=== PATIENT | female | born 1990 | race Asian ===

== ENCOUNTER 2021-04-19 05:17 | Inpatient (IN) | payer BC ==
[2021-04-19] MEDS ORDERED: TERBUTALINE 1 MG/ML VIAL SQ PRN (06:10)
[2021-04-19] MEDS: LACTATED RINGERS 1,000 ML IV SCH ×4 (06:10→23:23)
[2021-04-19] MEDS ORDERED: METHYLERGONOVINE 0.2 MG/ML 1 ML AMP IM PRN (06:10)
[2021-04-19] MEDS ORDERED: LIDOCAINE 1% (PF) 10 MG/ML (30 ML SDV) SQ PRN (06:10)
[2021-04-19] MEDS ORDERED: CARBOPROST TROMETHAMINE 250 MCG/ML 1 ML AMP IM PRN (06:10)
[2021-04-19] MEDS ORDERED: OXYTOCIN 10 UNIT/ML 1 ML VIAL IM PRN (06:10)
[2021-04-19 06:23] LABS: Basophils % (A) 0 %; Eosinophils # (A) 0.1 k/uL (0-0.7); Eosinophils % (A) 1 %; HCT 37.6 % (34.0-46.0); HGB 12.5 gm/dL (11.4-16.0); Lymphocytes # (A) 1.9 k/uL (1.0-4.8); Lymphocytes % (A) 15 %; MCH 29.8 pg (25.0-35.0); MCHC 33.1 g/dL (31.0-37.0); Mean Platelet Volume 9.3; Monocytes # (A) 0.6 k/uL (0-1.0); Monocytes % (A) 5 %; Neutrophils # (A) 9.3 k/uL (1.3-7.7); Neutrophils % (A) 76 %; Platelet Count 220 k/uL (150-450); RBC 4.18 m/uL (3.80-5.40); RDW 14.5 % (11.5-15.5); WBC 12.2 k/uL (3.8-10.6)
[2021-04-19] MEDS ORDERED: OXYTOCIN 30 UNITS/500 ML NS 30 UNIT in SALINE 1 500ML.BAG IV SCH ×2 (06:45→17:00)
--- NOTE | 2021-04-19 14:06 | P.HPOB ---
History of Present Illness H&P Date: 04/19/21 Chief Complaint: 38-2/7 weeks, spontaneous rupture of membranes, early labor The patient is a 30-year-old 1 para 0 admitted at 38-2/7 weeks as established by last menstrual period and confirmed by second trimester ultrasound. She is admitted with documented spontaneous rupture of membranes in early labor with all signs reassuring, category 1 heart rate tracing. Her has been entirely uncomplicated and group B strep status is negative. Review of Systems Review of systems is confined to history of present illness. Past Medical History Past Medical History: No Reported History History of Any Multi-Drug Resistant Organisms: None Reported Past Surgical History: No Surgical Hx Reported Past Anesthesia/Blood Transfusion Reactions: No Reported Reaction Past Psychological History: No Psychological Hx Reported Smoking Status: Never smoker Past Alcohol Use History: None Reported Past Drug Use History: None Reported - Past Family History Mother Family Medical History: No Reported History Father Family Medical History: No Reported History Medications and Allergies Home Medications Medication Instructions Recorded Confirmed Type Cholecalciferol [Vitamin D3 (25 1 tab PO WEEKLY 04/19/21 04/19/21 History Mcg = 1000 Iu)] Pnv No.95/Ferrous Fum/Folic AC 1 tab PO DAILY 04/19/21 04/19/21 History [ Multivitamin Tablet] Allergies Allergy/AdvReac Type Severity Reaction Status Date / Time No Known Allergies Allergy Verified 04/19/21 05:20 Exam Vital Signs Temp Pulse Resp BP Pulse Ox 04/19/21 05:19 97.9 F 106 H 18 137/94 98 Intake and Output 04/18/21 04/19/21 04/19/21 22:59 06:59 14:59 Other: # Voids 1 Weight 72.121 kg In general, this is a well-developed, well-nourished woman in no acute distress. Her heart has a regular rhythm and rate without murmur. Her lungs clear to auscultation bilaterally in all collins. Her abdomen is gravid, nondistended, has normal active bowel sounds, is soft, nontender, and without any palpable masses aside from uterine fundus. Her extremities are without any cyanosis, clubbing, or edema and are nontender to palpation. On admission, her cervix was approximate 170 dilated, 50% effaced, the vertex in presentation at - 2 station. Spontaneous rupture of membranes was documented. Results Result Diagrams: 04/19/21 06:05 Abnormal Lab Results - Last 24 Hours (Table) 04/19/21 Range/Units 06:05 WBC 12.2 H (3.8-10.6) k/uL Neutrophils # 9.3 H (1.3-7.7) k/uL Assessment and Plan (1) Spontaneous rupture of amniotic membranes Current Visit: Yes Status: Acute Code(s): BYO1117 - SNOMED Code(s): 935661418 (2) Active labor at term Current Visit: Yes Status: Acute Code(s): ESW8176 - SNOMED Code(s): 34676868 Plan: The patient has been admitted for active management of labor. Pitocin augmentation was started. She will continue to have close maternal and surveillance and expectant management will be practiced. She is a good candidate for either IV or epidural analgesia and, at this time an epidural has been placed and she has progressed to complete and is pushing. I would anticipate a normal vaginal delivery in the near future.
[2021-04-19] MEDS ORDERED: CITRIC ACID-SODIUM CITRATE 15 ML CUP PO ONE (15:37)
[2021-04-19] MEDS ORDERED: ZOLPIDEM 5 MG TAB PO PRN (16:56)
[2021-04-19] MEDS ORDERED: METOCLOPRAMIDE 5 MG/ML 2 ML VIAL IVP PRN (16:56)
[2021-04-19] MEDS ORDERED: LANOLIN CREAM 5 GM TUBE TOPICAL PRN (16:56)
[2021-04-19] MEDS ORDERED: HYDROmorphone 2 MG TAB PO PRN (16:56)
[2021-04-19] MEDS ORDERED: diphenhydrAMINE 25 MG CAP PO PRN (16:56)
[2021-04-19] MEDS ORDERED: ONDANSETRON 4 MG/2 ML VIAL IVP PRN (16:56)
[2021-04-19] MEDS ORDERED: diphenhydrAMINE 50 MG/ML 1 ML VIAL IVP PRN ×2 (16:56)
[2021-04-19] MEDS ORDERED: diphenhydrAMINE 50 MG CAP PO PRN (16:56)
[2021-04-19] MEDS ORDERED: NALOXONE 0.4 MG/ML 1 ML VIAL IV PRN (16:56)
--- NOTE | 2021-04-19 17:06 | P.OP ---
Date of Procedure: 04/19/21 Preoperative Diagnosis: #1. 38+ weeks, labor #2. Arrest of descent Postoperative Diagnosis: Same plus #3. occiput posterior Procedure(s) Performed: #1. Primary low-transverse section Anesthesia: epidural Surgeon: Arvind Moody King Maker #1: Minh Kirk Estimated Blood Loss (ml): 560 IV fluids (ml): 800 Urine output (ml): 200 Pathology: none sent Condition: stable Disposition: floor Operative Findings: Rapidly, the patient had been pushing for over 2 hours with no descent of the head below 0 to +1 station and significantly increasing At. Additionally, the infant was thought to be occiput posterior. As result of this plus maternal fatigue, the decision was made to proceed to the operating room. She was taken the operating room where she was delivered of a viable 6 lbs. 2 oz. baby boy with Apgars of 8 at 1 minute and 9 at 5 minutes in the direct occiput posterior position. The head was located very deep in the pelvis and was difficult to remove. The placenta was delivered manually, intact, and grossly normal with a grossly normal three-vessel cord. Uterus, tubes, and ovaries were entirely normal to inspection. The urine was slightly blood-tinged at the beginning the case and remained so at the end of the case though it did appear to be clearing within the nonlatex catheter. Description of Procedure: The patient was prepped and draped in usual fashion after epidural anesthesia was bolused by the anesthesiologist. A Pfannenstiel incision was made and extended into the abdominal cavity without difficulty. The bladder peritoneum was elevated, incised, and reflected distally. A 2 cm incision was made in the transverse plane of the lower uterine segment to enter the uterus at which time clear fluid was again noted. The incision was extended in both directions using the bandage scissors. The head was encountered deep within the pelvis and was with some difficulty elevated up and through the incision where the nose and mouth were thoroughly suctioned. Remainder of the infant was delivered onto the field where the cord was doubly clamped, cut, and the infant passed resuscitative measures with weight and Apgars as noted above. A segment of cord was doubly clamped, cut, and set aside should cord gases become necessary. The placenta was delivered manually and intact as noted above. The uterus was exteriorized and the interior cavity of uterus swept of any remaining placental or membranous fragments. The margins of the uterine incision were grasped with Mehta clamps. There was noted to be an extension at the right angle slightly towards the cervix but definitely into the area of the blood vessels. The incision was closed in 2 layers, the first layer being a running locking stitch of 0 chromic catgut followed by a running imbricating stitch of 0 chromic catgut. To areas of significant bleeding were noted, one in the right central portion of the incision and the second outside of the actual incision itself were a large vessel was noted to of the lacerated. Jrbiia-vh-wuwit stitches were placed around each to control them which ultimately led to excellent hemostasis. The posterior cul-de-sac was suctioned with a guard and the uterine and ovarian findings were normal as noted above. The uterus was replaced within the abdominal cavity and the area of the large sinuses in the right central portion of the incision was noted to continue to bleed and was made hemostatic with the another uphjiq-ut-ecgiz stitch of 0 chromic catgut. After hemostasis was assured, careful examination of the entire field was undertaken and there was no ongoing bleeding. The gutters were swept of any remaining blood, fluid, or clot. The parietal peritoneum was loosely reapproximated in the layer of muscles examined and made hemostatic with the Bovie. The fascia was closed with 2 running stitches of 0 Vicryl proceeding from the lateral margins to the midpoint. The subcutaneous tissues were irrigated, made hemostatic with the Bovie, and reapproximated with a running stitch of 3-0 plain catgut. The skin was reapproximated with a running subcuticular stitch of 4-0 Vicryl followed by half-inch Steri-Strips placed with Mastisol. Estimated blood loss for the case was approximately 560 mL. All sponge, instrument, needle counts were correct. There were no complications. The patient tolerated the procedure well and proceeded to the recovery room in stable condition. Both mother and are resting comfortably in recovery.
[2021-04-19] MEDS: SENNOSIDES-DOCUSATE SODIUM 1 EACH TAB PO SCH (20:08)
[2021-04-19] MEDS: ACETAMINOPHEN TAB 500 MG TAB PO SCH (20:08)
[2021-04-19] MEDS: KETOROLAC 30 MG/ML 1 ML VIAL IVP PRN (22:44)
[2021-04-19] MEDS: IBUPROFEN 600 MG TAB PO SCH (23:23)
[2021-04-20] MEDS: LACTATED RINGERS 1,000 ML IV SCH ×3 (01:22→09:21)
[2021-04-20] MEDS: ACETAMINOPHEN TAB 500 MG TAB PO SCH ×4 (01:53→21:31)
[2021-04-20] MEDS: KETOROLAC 30 MG/ML 1 ML VIAL IVP PRN ×2 (05:01→12:42)
[2021-04-20] MEDS: IBUPROFEN 600 MG TAB PO SCH ×3 (05:24→21:30)
[2021-04-20 07:09] LABS: Basophils % (A) 0 %; Eosinophils # (A) 0.1 k/uL (0-0.7); Eosinophils % (A) 1 %; HCT 32.9 % (34.0-46.0); HGB 10.9 gm/dL (11.4-16.0); Lymphocytes # (A) 1.8 k/uL (1.0-4.8); Lymphocytes % (A) 11 %; MCH 30.5 pg (25.0-35.0); MCHC 33.2 g/dL (31.0-37.0); Mean Platelet Volume 9.5; Monocytes # (A) 0.5 k/uL (0-1.0); Monocytes % (A) 3 %; Neutrophils # (A) 14.1 k/uL (1.3-7.7); Neutrophils % (A) 84 %; Platelet Count 180 k/uL (150-450); RBC 3.58 m/uL (3.80-5.40); RDW 14.8 % (11.5-15.5); WBC 16.8 k/uL (3.8-10.6)
[2021-04-20] MEDS: SENNOSIDES-DOCUSATE SODIUM 1 EACH TAB PO SCH ×2 (08:35→21:15)
--- NOTE | 2021-04-20 08:50 | P.PN ---
Progress Note - Text Progress Note Date: 04/20/21 Patient without complaints. Ambulating without paresthesia or weakness. Denies headache. Mild pruritis. Pain controlled. Epidural site c/d. POD#1 s/p with epidural duramorph - Doing well
--- NOTE | 2021-04-20 10:26 | P.PNOBGPC ---
Subjective - Subjective Patient reports: Reports appetite normal, Reports voiding normally, Reports pain well controlled, Reports ambulating normally : doing well Objective - Vital Signs Latest vital signs: Vital Signs Temp Pulse Resp BP Pulse Ox 04/20/21 08:00 97.4 F L 91 16 109/78 99 04/20/21 04:00 97.2 F L 80 16 115/74 04/20/21 00:00 97.7 F 88 16 115/78 04/19/21 20:00 97.8 F 91 16 115/79 04/19/21 19:04 85 16 128/87 100 04/19/21 18:31 90 16 115/74 99 04/19/21 18:05 89 16 117/79 99 04/19/21 17:50 86 16 117/78 99 04/19/21 17:35 88 16 105/73 100 04/19/21 17:20 85 16 102/57 100 04/19/21 17:05 97.8 F 87 16 122/79 100 Intake and Output 04/19/21 04/20/21 04/20/21 22:59 06:59 14:59 Intake Total 20.533 Output Total 910 2600 250 Balance -889.467 -2600 -250 Intake: Intake, IV Titration 20.533 Amount Oxytocin 30 Units/500 ml 20.533 Ns 30 unit In Saline 1 500ml.bag @ Per Protocol IV .[facility] Rx#:[id number] Output: Urine 350 2600 250 Uretheral (Golden) 350 1000 Estimated Blood Loss 560 Other: # Voids 1 1 - Exam Extremities: Present: normal Abdomen: Present: normal appearance, soft. Absent: distention, tenderness Incision: Present: normal, dry, intact Uterus: Present: normal, firm (The uterine fundus is tonic and appropriate tender below the umbilicus.) - Labs Labs: Abnormal Lab Results - Last 24 Hours (Table) 04/20/21 Range/Units 06:53 WBC 16.8 H (3.8-10.6) k/uL RBC 3.58 L (3.80-5.40) m/uL Hgb 10.9 L (11.4-16.0) gm/dL Hct 32.9 L (34.0-46.0) % Neutrophils # 14.1 H (1.3-7.7) k/uL Assessment and Plan (1) Spontaneous rupture of amniotic membranes Current Visit: Yes Status: Acute Code(s): [id number] - SNOMED Code(s): 850300957 (2) Active labor at term Current Visit: Yes Status: Acute Code(s): TEF6641 - SNOMED Code(s): 26627600 (3) Status post section Current Visit: Yes Status: Acute Code(s): Z98.891 - HISTORY OF UTERINE SCAR FROM PREVIOUS SURGERY SNOMED Code(s): 233802541 Plan: I have strongly encouraged the patient and in the hallways routinely today as she is not yet passing gas. She is tolerating a regular diet. She will continue to have routine and postoperative care. I have also strongly encouraged her to try to nurse the baby if that is her intention. I would anticipate possible discharge home tomorrow pending no complications.
[2021-04-20] MEDS: HYDROmorphone 2 MG TAB PO PRN (21:15)
[2021-04-21] MEDS: IBUPROFEN 600 MG TAB PO SCH ×4 (02:22→21:53)
[2021-04-21] MEDS: ACETAMINOPHEN TAB 500 MG TAB PO SCH ×4 (02:30→20:33)
--- NOTE | 2021-04-21 07:54 | P.PN ---
Subjective Progress Note Date: 04/21/21 Principal diagnosis: Post operative day #2 Slept well. Burning incisional pain. Positive flatus. No other complaints Objective - Vital Signs Vital signs: Vital Signs Temp 98.5 F 04/21/21 00:00 Pulse 98 04/21/21 00:00 Resp 17 04/21/21 00:00 BP 118/83 04/21/21 00:00 Pulse Ox 98 04/21/21 00:00 Intake & Output 04/20/21 04/21/21 04/21/21 18:59 06:59 18:59 Output Total 250 Balance -250 Output: Urine 250 Other: # Voids 1 2 - Constitutional General appearance: Present: average body habitus, cooperative - EENT Eyes: Present: PERRLA ENT: Present: hearing grossly normal - Neck Neck: Present: normal ROM - Respiratory Respiratory: bilateral: CTA - Cardiovascular Rhythm: regular - Gastrointestinal General gastrointestinal: Present: normal bowel sounds - Genitourinary Genitourinary Comment(s): Fundus firm, midline, symmetric, 18 week size. Incision clean and dry, intact, Steri-Strips applied. - Integumentary Integumentary: Present: normal - Neurologic Neurologic: Present: CNII-XII intact - Musculoskeletal Musculoskeletal: Present: gait normal - Psychiatric Psychiatric: Present: A&O x's 3, appropriate affect, intact judgment & insight - Labs CBC & Chem 7: 04/20/21 06:53 Assessment and Plan Assessment: Doing well post operative day #2 Plan: Continue post operative care. Declining circumcision. Anticipate discharge home tomorrow Time with Patient: Less than 30
[2021-04-21] MEDS: HYDROmorphone 2 MG TAB PO PRN ×2 (09:09→16:06)
[2021-04-21] MEDS: SENNOSIDES-DOCUSATE SODIUM 1 EACH TAB PO SCH ×2 (09:10→20:33)
[2021-04-21] MEDS: SIMETHICONE 80 MG CHEWABLE PO PRN ×2 (09:10→16:06)
[2021-04-22] MEDS: ACETAMINOPHEN TAB 500 MG TAB PO SCH (04:33)
[2021-04-22] MEDS: IBUPROFEN 600 MG TAB PO SCH ×2 (05:52→08:42)
[2021-04-22] MEDS: SENNOSIDES-DOCUSATE SODIUM 1 EACH TAB PO SCH (08:42)
--- NOTE | 2021-04-22 09:04 | P.DS ---
Providers Date of admission: 04/19/21 05:36 Expected date of discharge: 04/22/21 Attending physician: Shana Ring Primary care physician: Stated None Hospital Course: This is a 30-year-old female 1 para 0 EDC 05/01/2021 at 38-2/7 weeks' gestation who presented with spontaneous amniorrhexis which occurred at home, clear fluid. is remarkable for blood type O positive, group B strep cultures negative, rubella status immune. Please see dictated history and physical for details. Patient had arrest of descent in the second stage of labor and after one and a half hours of pushing, decision was made to proceed with primary low transverse section. She gave to a liveborn male with scores of 8 and 9 at one and 5 minutes respectively. Infant weighed 2780 g or 6 lbs. 12 oz. There was an estimated blood loss of 560 mL's. Please see dictated operative note for details. Postoperatively the patient has done well. Her incision this morning is clean and dry, intact, Steri-Strips applied. Fundus is firm, midline, symmetric, approximately 18 week size. Breasts are not engorged. Breast-feeding is going well. Breast pump has been received. Circumcision is offered and declined. Patient is judged to be in very good condition for discharge home today. She is reminded no intercourse, tampons or douching. We will discuss contraceptive options in the office. She will continue taking her vitamin daily. She will use kfvv-err-wzefhao Advil or Aleve, or Motrin as needed for pain. She will call with any fevers shakes or chills, foul smelling or copious lochia, with the passage of large blood clots, with any pain not alleviated by biti-lyt-spdbjpb products, or indeed with any concerns. Assessment: Doing well third postoperative day Patient Condition at Discharge: Good Plan - Discharge Summary Discharge Rx Participant: No New Discharge Prescriptions: No Action Pnv No.95/Ferrous Fum/Folic AC [ Multivitamin Tablet] 1 tab PO DAILY Cholecalciferol [Vitamin D3 (25 Mcg = 1000 Iu)] 1 tab PO WEEKLY Discharge Medication List Cholecalciferol [Vitamin D3 (25 Mcg = 1000 Iu)] 1 tab PO WEEKLY 04/19/21 [History] Pnv No.95/Ferrous Fum/Folic AC [ Multivitamin Tablet] 1 tab PO DAILY 04/19/21 [History] Follow up Appointment(s)/Referral(s): Shana Ring MD [STAFF PHYSICIAN] - 2 Weeks Discharge Disposition: HOME SELF-CARE
[2021-04-22 09:08] VITALS: BP 127/84; PULSE 85; RESP 18; TEMP 97.8
== END 2021-04-22 12:45 | disposition home or self-care (01) | DRG 788 ==
LOC: FBPOP 05:17 → 4FBP 05:36
PROVIDERS: ADMIT Obstetrics & Gynecology; ATTEND Obstetrics & Gynecology
PROC: 3E033VJ Introduction of Other Hormone into Peripheral Vein, Percutaneous Approach (ICD-10-PCS; 2021-04-19)
PROC: 10D00Z1 Extraction of Products of Conception, Low, Open Approach (ICD-10-PCS; principal; 2021-04-19 16:40)
DX: O42.92 Full-term premature rupture of membranes, unspecified as to length of time between rupture and onset of labor (principal); O32.4XX0 Maternal care for high head at term, not applicable or unspecified; Z37.0 Single live birth; Z3A.38 38 weeks gestation of pregnancy; L29.9 Pruritus, unspecified; O99.73 Diseases of the skin and subcutaneous tissue complicating the puerperium
CPT/HCPCS: 59025; 84112; 85025; 86850; 86900; 86901; 99213

== ENCOUNTER 2022-10-30 02:45 | Inpatient (IN) | payer BC ==
[2022-10-27 10:34] VITALS: BMI 30.7
[2022-10-30] MEDS ORDERED: NALBUPHINE 10 MG/ML (10 ML MDV) IV PRN (03:24)
[2022-10-30] MEDS: LACTATED RINGERS 1,000 ML IV SCH ×4 (03:45→20:20)
[2022-10-30] MEDS ORDERED: METHYLERGONOVINE 0.2 MG/ML 1 ML AMP IM PRN (03:51)
[2022-10-30] MEDS ORDERED: CARBOPROST TROMETHAMINE 250 MCG/ML 1 ML AMP IM PRN (03:51)
[2022-10-30] MEDS ORDERED: miSOPROStoL 200 MCG TAB PO PRN (03:51)
[2022-10-30] MEDS ORDERED: OXYTOCIN 10 UNIT/ML 1 ML VIAL IM PRN (03:51)
[2022-10-30] MEDS ORDERED: TRANEXAMIC 1,000 MG/100ML-NACL 1,000 MG in EMPTY BAG 1 BAG IV PRN (03:51)
[2022-10-30] MEDS ORDERED: CITRIC ACID-SODIUM CITRATE 15 ML CUP PO ONE (03:51)
[2022-10-30 04:01] LABS: Basophils % (A) 0 %; Eosinophils # (A) 0.1 k/uL (0-0.7); Eosinophils % (A) 1 %; HCT 33.4 % (34.0-46.0); HGB 11.4 gm/dL (11.4-16.0); Lymphocytes # (A) 2.9 k/uL (1.0-4.8); Lymphocytes % (A) 19 %; MCH 30.2 pg (25.0-35.0); MCHC 34.2 g/dL (31.0-37.0); MCV 88.2 fL (80.0-100.0); Mean Platelet Volume 9.9; Monocytes # (A) 0.6 k/uL (0-1.0); Monocytes % (A) 4 %; Neutrophils % (A) 74 %; Platelet Count 202 k/uL (150-450); RBC 3.79 m/uL (3.80-5.40); RDW 13.6 % (11.5-15.5); WBC 14.8 k/uL (3.8-10.6)
--- NOTE | 2022-10-30 05:16 | P.HPOB ---
History of Present Illness H&P Date: 10/30/22 Chief Complaint: contractions, history of prior section Ms. Bryant is a 31 year old at 39 weeks and 2 days with EDC of 11/04/2022 (by LMP consistent with 12 week US) who presents to labor and delivery for 5 hours before her scheduled repeat section with bilateral salpingectomy having painful, regular contractions. After a fluid bolus the contractions spaced out, but were still painful and regular. Her cervical exam was 5/80/-1. The decision was made to move forward with section at this time. The has been complicated by intrauterine growth restriction with estimated weight in the 8.6%ile and abdominal circumference in the <1%ile on 37 week ultrasound, with fetus weight 5 pounds and 7 ounces. She has been undergoing weekly NSTs and weekly ultrasounds with biophysical profiles and umbilical artery cord dopplers which have all been normal and reassuring. Obstetric history: 1 full-term section secondary to arrest of descent Maternal work-up: blood type O positive, antibody screen negative, rubella immune, VDRL non-reactive, HBsAg negative, HIV negative, gonorrhea negative, chlamydia negative, 1 hour GTT 80, GBS negative. Patient received TDap during third trimester. Past Medical History Past Medical History: Liver Disease Additional Past Medical History / Comment(s): Varicose vein - left. Hx fatty liver 5 yrs ago. History of Any Multi-Drug Resistant Organisms: None Reported Past Surgical History: Section Additional Past Surgical History / Comment(s): Section X1. Past Anesthesia/Blood Transfusion Reactions: No Reported Reaction, Motion Sickness Past Psychological History: No Psychological Hx Reported Smoking Status: Never smoker Past Alcohol Use History: None Reported Past Drug Use History: None Reported - Past Family History Mother Family Medical History: No Reported History Father Family Medical History: No Reported History Medications and Allergies Home Medications Medication Instructions Recorded Confirmed Type Pnv No.95/Ferrous Fum/Folic AC 1 tab PO DAILY 04/19/21 10/27/22 History [ Multivitamin Tablet] Ergocalciferol [Vitamin D2 (1250 1,250 mcg PO WEEKLY 10/27/22 10/27/22 History Mcg = 28609 Iu)] Allergies Allergy/AdvReac Type Severity Reaction Status Date / Time No Known Allergies Allergy Verified 10/27/22 10:24 Exam Focused physical exam is performed. This is a healthy-appearing , breathing through contractions. Abdomen is gravid. Cervical exam is 5/80/-1. Extremities are non-tender, non-edematous. heart tones are Category I. Tocometer is graphing contractions every 5-8 minutes. Results Result Diagrams: 10/30/22 03:45 Abnormal Lab Results - Last 24 Hours (Table) 10/30/22 Range/Units 03:45 WBC 14.8 H (3.8-10.6) k/uL RBC 3.79 L (3.80-5.40) m/uL Hct 33.4 L (34.0-46.0) % Neutrophils # 11.0 H (1.3-7.7) k/uL Assessment and Plan Assessment: 31 year old at 39 weeks and 2 days presenting with regular uterine contractions, scheduled for repeat section with bilateral salpingecomty in just a few hours Plan: Admit, has been NPO since 1900 yesterday evening, move forward with c/s at this time, 2g Ancef for antibiotic prophylaxis. Time with Patient: Less than 30 (10 minutes)
[2022-10-30] MEDS ORDERED: HYDROmorphone 0.5 MG/0.5 ML SYRINGE IVP PRN (05:56)
[2022-10-30] MEDS ORDERED: NALOXONE 0.4 MG/ML 1 ML VIAL IV PRN (05:56)
--- NOTE | 2022-10-30 06:35 | P.OP ---
Date of Procedure: 10/30/22 Preoperative Diagnosis: 1. Term IUP at 39 weeks and 2 days 2. Intrauterine growth restriction with abdominal circumference in less than 1%ile 3. Labor 4. History of prior section with no desires for TOLAC 5. Desire for permanent sterilization and risk reduction Postoperative Diagnosis: Same Procedure(s) Performed: Repeat Lower Transverse Section with Bilateral Salpingectomy Implants: None Anesthesia: spinal Surgeon: Linda Mondragon Senior Datastage Developer #1: Arvind Moody Estimated Blood Loss (ml): 300 IV fluids (ml): 500 Urine output (ml): 100 (clear yellow) Pathology: none sent Condition: stable Disposition: floor Indications for Procedure: Ms. Bryant is a 31 year old at 39 weeks and 2 days who presented just hours before her scheduled repeat section with bilateral salpingectomy complaining of regular painful contractions. She was checked and found to be 5 cm dilated. The decision was made to proceed with repeat section melanie y. Risks, benefits, and alternatives to section were discussed with the patient including risk of bleeding, infection, damage to surrounding structures including bladder/bowel/ureters, and postoperative VTE. Risks of bilateral salpingectomy were discussed including risk of regret and the inability to ever achieve a again without in vitro fertilization. The patient understands these risks and desires to proceed with the surgery as scheduled. Operative Findings: Viable male in occiput anterior presentation with Apgars of 8 and 9 at 1 and 5 minutes, respectively. weight 6 pounds and 3 ounces (2800 grams). Colorless amniotic fluid. Normal uterus, fallopian tubes, and ovaries noted. Description of Procedure: The patient was taken to the operating room where spinal anesthesia was found to be adequate. One gram of Ancef was given for infection prophylaxis. She was prepared and draped in the dorsal supine position with a leftward tilt. A Pfannenstiel skin incision was made with the scalpel. The incision was carried down to the fascia. The fascia was incised and extended laterally with Zamora scissors. The superior aspect of the fascia was grasped with Andria clamps. The underlying rectus muscle was dissected off sharply with Zamora scissors. In a similar fashion, the inferior aspect of the fascia was elevated with Andria clamps and the rectus muscle and pyramidalis were dissected off. Excellent hemostasis was achieved with the bovie. The rectus muscle was in the midline down to the level of the pubic symphysis. Pre-peritoneal fatty tissue was bluntly dissected to expose the peritoneum. The peritoneum was found to be free of adherent bowel and entered sharply with Zamora scissors. The peritoneal incision was extended superiorly and inferiorly to the bladder reflection with good visualization of the bladder. The bladder blade was inserted and vesicouterine peritoneum was identified. Intraabdominal survey revealed scant, clear peritoneal fluid and the thinned-out lower uterine segment. The vesicouterine peritoneum was opened with scissors and the bladder flap was developed. The bladder blade was repositioned to keep the bladder out of the operative field. The lower uterine segment was incised with a scalpel. The amniotic sac was ruptured and clear fluid was noted. The uterine incision was extended bluntly with lateral and upward traction. The fetus was in occiput anterior position. The head was elevated out of the pelvis with special attention paid to avoid using the uterine incision as a fulcrum. Gentle fundal pressure was applied once the head was brought into the incision. The infant was delivered with no difficulty. The mouth and nose were suctioned with a bulb. The cord was clamped and cut. was noted to be spontaneously crying. The infant was handed off to the retort pre cooker. IV oxytocin was initiated to facilitate uterine contractions. The placenta was delivered intact with manual massage of uterine fundus. The uterus was then exteriorized and the inside of the uterus was gently wiped with a lap sponge to assure complete removal of placental membranes. The uterine incision was closed with a 0-Polysorb suture in a running locked fashion. A second imbricating layer of 0-Polysorb was placed along the incision. The ovaries and tubes were found to be normal. The fimbriated end of the right fallopian tube was grasped, cauterized, and cut sequentially to the level of the uterine cornua. This process was repeated on the left side. The uterus and ovaries were then gently returned to the abdominal cavity. The blood clots and fluid were wiped out of the abdomen and pelvis with moist laparotomy sponges. The pelvis was copiously suction irrigated.The uterine incision was reinspected and excellent hemostasis was noted. The fascial layer was closed with a 0-Vicryl suture. The subcutaneous tissue was reapproximated with 2-0 Plain Gut. The skin was closed with 4-0 Monocryl in a subcuticular fashion. The patient tolerated the procedure well. All the counts were correct times two. The patient was taken to the recovery room in a stable condition.
[2022-10-30 06:52] VITALS: RESP 16
[2022-10-30] MEDS: KETOROLAC 15 MG/ML 1 ML VIAL IVP PRN ×2 (14:06→23:12)
[2022-10-30] MEDS: ACETAMINOPHEN TAB 500 MG TAB PO PRN (20:55)
[2022-10-31] MEDS: LACTATED RINGERS 1,000 ML IV SCH ×2 (05:04→19:25)
[2022-10-31] MEDS: ACETAMINOPHEN TAB 500 MG TAB PO PRN ×4 (06:21→23:18)
[2022-10-31] MEDS ORDERED: oxyCODONE-APAP 5-325MG 1 EACH TAB PO PRN (08:19)
--- NOTE | 2022-10-31 08:59 | P.PN ---
Progress Note - Text Progress Note Date: 10/31/22 ([id number]) Anesthesia Postop day 1 Subjective: Status Post section with Duramorph. Patient seen and examined. Doing well without complaint. VAS 7-8 out of 10. Nurse is currently getting next dose of pain medicine. No nausea vomiting or pruritus. Gross lower extremity strength intact. . Without apparent anesthetic complications. interviewed this patient was in the bathroom. Objective: Vital signs reviewed Assessment: Status post with Duramorph postop day 1 Plan: Continue current care with your medical management. Anticipated and the Duramorph section around time today. You may see increased pain needs around this time.
--- NOTE | 2022-10-31 09:39 | P.PNOBGPC ---
Subjective - Subjective Principal diagnosis: Postop day 1 RCS Interval history: Patient is doing well this am, she is ambulating with some difficulty secondary to pain. She is voiding without difficulty. He is tolerating a regular diet without nausea or vomiting. States her lochia is moderate. Patient reports: Reports appetite normal, Reports voiding normally, Reports pain well controlled, Reports ambulating normally [place]: doing well Objective - Vital Signs Latest vital signs: Vital Signs Temp Pulse Pulse Resp BP Pulse Ox 10/31/22 08:32 98.1 F 72 16 99/64 10/31/22 04:00 98.0 F 72 16 99/60 10/31/22 00:00 98.1 F 74 16 99/62 98 10/30/22 20:00 98.0 F 86 16 112/65 98 10/30/22 15:54 98.2 F 72 16 99/64 10/30/22 14:00 16 10/30/22 12:00 98.4 F 72 16 99/65 98 10/30/22 10:00 16 98 Intake and Output 10/30/22 10/31/22 10/31/22 22:59 06:59 14:59 Output Total 1150 300 Balance -1150 -300 Output: Urine 1150 300 Uretheral (Golden) 800 Other: # Voids 1 1 - Exam Extremities: Present: normal, edema Abdomen: Present: normal appearance, soft Incision: Present: normal, dry, intact Uterus: Present: normal, firm Assessment and Plan (1) Term Current Visit: Yes Status: Acute Code(s): Z34.90 - ENCNTR FOR SUPRVSN OF NORMAL , UNSP, UNSP TRIMESTER SNOMED Code(s): 86163564 (2) H/O section Current Visit: Yes Status: Acute Code(s): Z98.891 - HISTORY OF UTERINE SCAR FROM PREVIOUS SURGERY SNOMED Code(s): 579660005 (3) S/P section Current Visit: Yes Status: Acute Code(s): Z98.891 - HISTORY OF UTERINE SCAR FROM PREVIOUS SURGERY SNOMED Code(s): 595202144 Plan: Patient's treatment well postoperatively. We'll encourage increased ambulation. Continue routine postoperative care and anticipate discharge home tomorrow
[2022-10-31] MEDS: IBUPROFEN 600 MG TAB PO SCH ×3 (14:35→20:30)
[2022-10-31] MEDS: SENNOSIDES-DOCUSATE SODIUM 1 EACH TAB PO SCH (20:29)
[2022-11-01] MEDS: IBUPROFEN 600 MG TAB PO SCH ×2 (02:05→10:29)
[2022-11-01] MEDS: LACTATED RINGERS 1,000 ML IV SCH (02:08)
--- NOTE | 2022-11-01 07:25 | P.DS ---
Providers Date of admission: 10/30/22 02:45 Expected date of discharge: 11/01/22 Attending physician: Linda Mondragon MD Primary care physician: Physician Nonstaff - Discharge Diagnosis(es) (1) Term Current Visit: Yes Status: Acute (2) H/O section Current Visit: Yes Status: Acute (3) S/P section Current Visit: Yes Status: Acute Hospital Course: This is a 31-year-old 2 para 1 that presented to labor and delivery on 817 with complaints of painful contractions. Patient was scheduled for a C- section. Her that today. Patient was a scheduled repeat section. Patient had been receiving routine care which has been complicated by diagnosis of intrauterine growth restriction. Patient had normal testing. Full details on this patient please see dictated history and physical. Patient was admitted and repeat section was performed without difficulty. Patient delivered a viable female infant at 539, weight of 6 lbs. 3 oz., Apgars of 8 and 9 at one and 5 minutes respectively. Patient did have a bilateral salpingectomy during section in addition. For full details on the please see the operative report Patient's postoperative course has been uneventful. On this postoperative day #2 she is involuting and voiding without difficulty. She is tolerating a regular diet without nausea or vomiting. States her pain is well-controlled. Her lochia is minimal. Patient Condition at Discharge: Good Plan - Discharge Summary Discharge Rx Participant: No New Discharge Prescriptions: No Action Pnv No.95/Ferrous Fum/Folic AC [ Multivitamin Tablet] 1 tab PO DAILY Ergocalciferol [Vitamin D2 (1250 Mcg = 85819 Iu)] 1,250 mcg PO WEEKLY Discharge Medication List Pnv No.95/Ferrous Fum/Folic AC [ Multivitamin Tablet] 1 tab PO DAILY 04/19/21 [History] Ergocalciferol [Vitamin D2 (1250 Mcg = 60474 Iu)] 1,250 mcg PO WEEKLY 10/27/22 [History] Follow up Appointment(s)/Referral(s): Linda Mondragon MD [STAFF PHYSICIAN] - 2 Weeks Patient Instructions/Handouts: (DC), (GEN) Activity/Diet/Wound Care/Special Instructions: No tub baths or intercourse until 6 weeks postoperatively. Pcjw-qaj-kzqherl ibuprofen as needed for pain. Patient is to call the office and make a routine postoperative appointment in 2 weeks. Should she have any concerns prior disappointed she is urged to call the office. Discharge Disposition: HOME SELF-CARE
[2022-11-01 08:46] VITALS: BP 102/63; PULSE 63; TEMP 98.3
[2022-11-01] MEDS: SENNOSIDES-DOCUSATE SODIUM 1 EACH TAB PO SCH (10:30)
== END 2022-11-01 12:35 | disposition home or self-care (01) | DRG 785 ==
LOC: 4FBP 02:45
PROVIDERS: ADMIT Obstetrics & Gynecology; ATTEND Obstetrics & Gynecology
PROC: 0UB70ZZ Excision of Bilateral Fallopian Tubes, Open Approach (ICD-10-PCS; principal; 2022-10-30)
PROC: 10D00Z1 Extraction of Products of Conception, Low, Open Approach (ICD-10-PCS; principal; 2022-10-30)
DX: O34.211 Maternal care for low transverse scar from previous cesarean delivery (principal); O36.5930 Maternal care for other known or suspected poor fetal growth, third trimester, not applicable or unspecified; Z87.19 Personal history of other diseases of the digestive system; Z30.2 Encounter for sterilization; Z3A.39 39 weeks gestation of pregnancy; Z28.311 Partially vaccinated for COVID-19
CPT/HCPCS: 85025; 86850; 86900; 86901; 88302

== ENCOUNTER → 2023-09-06 | Outpatient (CLI) | payer BC ==
--- NOTE | 2023-09-06 14:34 | USB ---
Reason for Exam: Clinical finding. Findings: The whole breast of the right breast, the axilla of the right breast and the retroareolar of the right breast were scanned. No solid or cystic masses are identified. Mildly prominent ducts seen within the retroareolar region. Mildly prominent lymph node measuring 1.4 x 0.6 cm. Mildly thickened cortex. Three-month follow-up ultrasound is advised. Overall Assessment: Probably benign, BI-RAD 3 Management: Diagnostic Breast Ultrasound of the right breast in 3 months. A clinical breast exam by your physician is recommended on an annual basis and results should be correlated with mammographic findings. This exam should not preclude additional follow-up of suspicious palpable abnormalities. Results were given to the patient verbally at the time of exam. Electronically signed and approved by: Aime Forbes M.D. Radiologis
== END | disposition home or self-care (01) ==
LOC: RADUSWWP 13:54
PROVIDERS: ATTEND Family Medicine
DX: N64.4 Mastodynia (principal)